=== PATIENT | male | born 1950 ===

== ENCOUNTER 2022-10-17 05:15 | Day surgery (SDC) | payer OTHER ==
[~2022-10-17 05:15] MED LIST: CRESTOR5 MG PO; OLOPATADINE H30.5 GM IH; SINGULAIR10 MG PO; XELPROS2.5 ML OP
[2022-10-17] MEDS ORDERED: MIRALAX17 GM PO (09:08)
[2022-10-17] MEDS ORDERED: TRAMADOL HCL50 MG PO (09:08)
[2022-10-17] MEDS ORDERED: KETO10TA2 PO (09:08)
[2022-10-17] MEDS ORDERED: TYLENOL ARTHRI650 MG PO (09:08)
== END 2022-10-17 17:10 | disposition home or self-care (01) ==
LOC: CIR.AMB 05:15
PROVIDERS: ATTEND Surgery
DX: K40.90 Unilateral inguinal hernia, without obstruction or gangrene, not specified as recurrent (principal); K42.9 Umbilical hernia without obstruction or gangrene; I10 Essential (primary) hypertension; Z20.822 Contact with and (suspected) exposure to COVID-19
CPT/HCPCS: 49650; 49592; C1781